=== PATIENT | female | born 1965 | race Caucasian/White ===

== ENCOUNTER → 2017-08-22 | Day surgery (SDC) | payer OTHER ==
[2017-07-31 13:43] VITALS: Ht 170.2 cm; Wt 109.1 kg
[~2017-08-22] VITALS: Ht 170.2 cm; Wt 109.1 kg
[~2017-08-22] MED LIST: DEXAMETHASONE SOD INJ 4 MG/ML VIAL ONE; DULO-24 PO; IBUP-1428 PO; LIDOCAINE HCL 1% MPF 5 ML VIAL ONE; LRS10 PO; TRAM-10 PO
--- NOTE | 2017-08-22 07:46 | History & Physical Bridge - [place] ---
H&P Re-Evaluation Bridge Note: I have examined the patient, reviewed the History & Physical and in the interval since the performance of the History & Physical I have noted the following changes of clinical significance: No changes noted
--- NOTE | 2017-08-22 08:20 | [facility] Post Operative Brief Note ---
Immediate Operative Summary Operative Date Aug 22, 2017. Pre-Operative Diagnosis DEGENERATIVE DISC DISEASE Post-Operative Diagnosis SAME Procedure(s) Performed FACET INJECTION L4-L5, L5-S1 Surgeon DR. Amy TELLES Supervisor Conditioning Yard Surgeon(s) 0 Estimated Blood Loss 0 Findings arthritis Specimens none Complication(s) None Disposition Recovery Room / PACU
--- NOTE | 2017-08-22 08:22 | Discharge Instructions-SurgCtr ---
Discharge Instructions Date of Service Aug 22, 2017. Visit Reason for Visit: Degeneration Of Lumbar Intervertebral Disc Discharge Discharge Diagnosis / Problem: degeneration facet joints Discharge Goals Goal(s): Improve function Activity Recommendations Activity Limitations: as noted below Lifting Limitations: gradually increase as tolerated Exercise/Sports Limitations: until after follow-up appointment May Resume Sexual Activity: after follow-up appointment Anesthesia . Post Anesthesia Instructions: If you have had General Anesthesia or IV Sedation: * Do not drive today. * Resume driving when surgeon permits. * Do not make important decisions or sign legal documents today. * Call surgeon for: 1. Temperature elevations greater than 101 degrees F. 2. Uncontrollable pain. 3. Excessive bleeding. 4. Persistent nausea and vomiting. 5. Medication intolerance (nausea, vomiting or rash). * For nausea and vomiting use only clear liquids such as: tea, soda, bouillon until nausea subsides, then gradually increase diet as tolerated. * If you have any concerns or questions, call your surgeon's office. If physician is unavailable and it is an emergency, call 911 or go to the nearest emergency room. . Diet Recommendations Home Diet: no limitations Procedures Procedures Performed: FACET INJECTION L4-L5, L5-S1 Pending Studies Studies pending at discharge: no Medical Emergencies . Who to Call and When: Medical Emergencies: If at any time you feel your situation is an emergency, please call 911 immediately. . Non-Emergent Contact Non-Emergency issues call your: Primary Care Provider Call Non-Emergent contact if: you have any medication questions . . "Provider Documentation" section prepared by Carlos Patel. .
[2017-08-22 08:38] VITALS: BP 112/58; PULSE 58; TEMP 36.7; O2SAT 98
--- NOTE | 2017-08-22 08:50 | OPERATIVE REPORT ---
DATE OF OPERATION: 08/22/2017 PREOPERATIVE DIAGNOSIS: Facet arthrosis L4-5, L5-S1. POSTOPERATIVE DIAGNOSIS: Same. PROCEDURE: Included facet joint injections at L4-5 and L5-S1. SURGEON: Dr. Patel. COMPLICATIONS: Zero. ESTIMATED BLOOD LOSS: Zero. DESCRIPTION OF PROCEDURE: The patient was taken to the minor procedure room and placed prone, prepped and draped sterile. The 22-gauge Tuohy needle advanced to the facet joints bilaterally at L4-5 and L5-S1. A dexamethasone of 1 mL injected without incident. I used biplanar x-rays in imaging. No complications. She was discharged home stable. I attest to the content of the Intraoperative Record and any orders documented therein. Any exception s are noted below.
== END | disposition home or self-care (01) ==
LOC: X.SURG 06:52
PROVIDERS: ATTEND Orthopaedic Surgery Orthopaedic Surgery of the Spine
DX: M47.817 Spondylosis without myelopathy or radiculopathy, lumbosacral region (principal); F17.210 Nicotine dependence, cigarettes, uncomplicated

== ENCOUNTER → 2017-09-18 | Outpatient (CLI) | payer OTHER ==
[~2017-09-18] MED LIST changes: -DEXAMETHASONE SOD INJ 4 MG/ML VIAL ONE; -LIDOCAINE HCL 1% MPF 5 ML VIAL ONE
== END | disposition home or self-care (01) ==
LOC: C.RDSM 13:44
PROVIDERS: ATTEND Orthopaedic Surgery Sports Medicine
DX: M25.531 Pain in right wrist (principal); M25.532 Pain in left wrist

== ENCOUNTER → 2017-11-15 | Day surgery (SDC) | payer OTHER ==
[2017-10-15 14:46] VITALS: Ht 170.2 cm; Wt 109.1 kg
[2017-11-11 14:47] LABS: HEMATOCRIT 37.9 % (37-47); HEMOGLOBIN 12.4 g/dL (12.0-16.0); MEAN CELL VOLUME 92.2 fL (80-100); MEAN CORPUSCULAR HEMOGLOBIN 30.2 pg (25-34); MEAN CORPUSCULAR HGB CONC 32.7 g/dl (32-36); MEAN PLATELET VOLUME 10.3 fL (7.4-10.4); PLATELET COUNT 207 K/uL (130-400); RED CELL DISTRIBUTION WIDTH CV 13.9 % (11.5-14.5); RED CELL DISTRIBUTION WIDTH SD 46.9 fL (36.4-46.3); WHITE BLOOD COUNT 7.79 K/uL (4.8-10.8)
[2017-11-11 15:23] LABS: CALCIUM 8.7 mg/dl (8.5-10.1); CREATININE 0.78 mg/dl (0.60-1.20); POTASSIUM 3.8 mmol/L (3.5-5.1)
[~2017-11-15] VITALS: Ht 170.2 cm; Wt 109.1 kg
[~2017-11-15] MED LIST changes: +AMOX500C3 PO; +AMOX875T PO; +ATROPINE SULFATE 0.1 MG/ML 5ML SYR IV PRN; +BUPIVACAINE/EPINEPHRINE 0.5% MPF 1:200,000 30 ML VIAL ONE; +CEFAZOLIN 2000MG IV PUSH 10 ML IV SCH; +CIPR0.3S OTB; +DEXAMETHASONE SOD INJ 4 MG/ML VIAL ONE; -DULO-24 PO; +EpHEDrine SULFATE INJ 50 MG/ML AMP IV PRN; +FENTANYL CITRATE INJ 50 MCG/1 ML 2 ML VIAL IV PRN; +FENTANYL CITRATE INJ 50 MCG/1 ML 2 ML VIAL ONE; +KETOROLAC TROMETHAMINE 30 MG/ML VIAL IV. PRN; +LACTATED RINGER'S 1000ML 1,000 ML IV SCH; +LIDOCAINE HCL 1% 20 ML VIAL ONE; +LIDOCAINE HCL 2% 2 ML VIAL (20MG/ML) ONE; +MIDAZOLAM HCL 1 MG/ML 2ML VIAL ONE; +MoRPHine SULFATE 2 MG/ML CARP IV PRN; +MoRPHine SULFATE 4 MG/ML 1 ML CARP\\VIAL IV PRN; +ONDANSETRON INJ 2 MG/ML 2 ML VIAL IV PRN; +ONDANSETRON INJ 2 MG/ML 2 ML VIAL ONE; +OXYC-57 PO; +OXYCODONE/ACETAMINOPHEN 5-325 TAB PO PRN; +PROPOFOL IV EMULSION 10 MG/ML 20 ML VIAL IV ONE; +SERT-234 PO; +TERB250T47 PO; -TRAM-10 PO
--- NOTE | 2017-11-15 13:09 | Discharge Instructions-SurgCtr ---
Discharge Instructions Date of Service Nov 15, 2017. Visit Reason for Visit: Right Carpal Tunnel Syndrome Discharge Discharge Diagnosis / Problem: Status post Right Endoscopic Carpal Tunnel Release Discharge Goals Goal(s): Decrease discomfort, Improve function, Increase independence Medications Stopped Medications Name(s): NO ADVIL SINCE 11-01-17 Activity Recommendations Activity Limitations: per Instructions/Follow-up section Lifting Limitations: no more than 5 pounds (Cup Of Coffee) Exercise/Sports Limitations: rest today May Resume Sexual Activity: when tolerated Shower/Bathe: may shower/bathe in 3 days Driving or Machine Use: Not while on Narcotics Anesthesia . Post Anesthesia Instructions: If you have had General Anesthesia or IV Sedation: * Do not drive today. * Resume driving when surgeon permits. * Do not make important decisions or sign legal documents today. * Call surgeon for: 1. Temperature elevations greater than 101 degrees F. 2. Uncontrollable pain. 3. Excessive bleeding. 4. Persistent nausea and vomiting. 5. Medication intolerance (nausea, vomiting or rash). * For nausea and vomiting use only clear liquids such as: tea, soda, bouillon until nausea subsides, then gradually increase diet as tolerated. * If you have any concerns or questions, call your surgeon's office. If physician is unavailable and it is an emergency, call 911 or go to the nearest emergency room. . Instructions / Follow-Up Instructions / Follow-Up Dr. Schulte in 10-15 days. PT in 11/19/2017 Diet Recommendations Home Diet: resume previous diet Procedures Procedures Performed: Right Endoscopic Carpal Tunnel Release Pending Studies Studies pending at discharge: no Medical Emergencies . Who to Call and When: Medical Emergencies: If at any time you feel your situation is an emergency, please call 911 immediately. . Non-Emergent Contact Non-Emergency issues call your: Surgeon Call Non-Emergent contact if: temperature is above 101.5, your pain is not controlled, wound has increased drainage, wound has increased redness . . "Provider Documentation" section prepared by Charles Schulte. .
--- NOTE | 2017-11-15 13:11 | [facility] Operative Report ---
Operative Report Operative Date Nov 15, 2017. Pre-Operative Diagnosis Right Carpal Tunnel Syndrome Post-Operative Diagnosis Same Procedure(s) Performed Right Endoscopic Carpal Tunnel Release Surgeon Dr. Schulte Specifications Checker Surgeon(s) Sadiq Weldon, Fellow Estimated Blood Loss 2 ml Findings Thickened Right TCL. Fluids (cc crystalloids) 900 Specimens None Drains n/a Anesthesia Local + sedation Complication(s) None Disposition Recovery Room / PACU Implants n/a Indications The patient is a 52 year old female with long standing right carpal tunnel syndrome that has failed conservative treatment. I recommended endoscopic right carpal tunnel release. The patient understands the risks of surgery, which include but are not limited to: bleeding, infection, re-operation, damage to nerves and arteries, continued pain, and stiffness. The patient understands all of these instructions and explanations, all of their questions have been satisfactorily addressed. The patient has elected to proceed with surgery and the informed consent was signed. Description of Procedure The patient was taken to the Operating Room and placed in the supine position on the operating table. After adequate sedation was administered a multidisciplinary time-out was performed identifying my initials on the right upper extremity as the correct and operative limb. Prior to the incisions being made, 2 grams of intravenous Ancef were given. The right upper extremity was prepped and draped in the usual orthopaedic sterile fashion. A Median nerve block was performed in the standard manner, along with superficial injection of the planned incisions with 10 cc of a 50:50 mix of 1% Lidocaine plain and 0.5% Bupivacaine plain. The Pisiform was marked and the planned transverse incision was marked 0.5 cm proximal and 1.5 cm radial, approximately 1 cm in length. An Esmarch was used to exsanguinate the limb and the tourniquet was inflated to 250mmHg. The planned exit portal was made in- line with the Ring Finger crossing Caplans line. The Transverse incision was carried down through the skin and blunt dissect was carried down through the fascia, protecting any superficial vessels. A freer was used to expose the carpal tunnel to the point of the distal exit portal. The slotted cannula was introduced from proximal to distal and the exit portal was incised and the slotted cannula was delivered out the exit portal. The hand was placed on the extension bump. The arthroscope was placed from proximal to distal to view the Transverse Carpal Ligament (TCL). Multiple Q-tips were used for better exposure. The most distal aspect of the TCL was incised with forward cutting blade. Then the Triangular blade was used to incise the TCL in the mid-portion. The retrograde scalpel was used to connect the two incisions in the TCL. At this point the arthroscope was switched to view from the distal to proximal and the proximal portion of the TCL was incised. Care was taken not incise the skin. The forward cutting blade was used to incise the proximal portion. Then the retrograde blade connected the two incisions in the TCL. The triangular blade was used to incise any remaining fibers of the TCL. The entire release was visualized with the arthroscope. The wounds were copiously irrigated. The trocar was replaced prior to removing the cannula. Both portals were closed with 3-0 Nylon. The incisions were dressed with Xeroform gauze, sterile gauze, sterile Webril, and an RENEE bandage. The sponge and needle counts were correct. after placing the bandages, her motor function was tested and her median, radial, ulnar, AIN, PIN as well as thumb apposition were intact. The patient was taken to the recovery room in stable condition. Post-op Instructions: Pain medicine prescription was given pre-operatively to be taken as needed. The patient will elevate and ice. No heavy lifting with his right upper extremity. The patient will follow up with me in 10-15 days. I attest to the content of the Intraoperative Record and any orders documented therein. Any exceptions are noted below.
[2017-11-15 13:15] VITALS: TEMP 36.3
[2017-11-15 13:43] VITALS: BP 115/71; PULSE 57; O2SAT 98
--- NOTE | 2017-11-15 13:53 | Anesthesia Progress Nt - [facility] ---
Anesthesia Post Op Note Date & Time Nov 15, 2017 at 13:53 Vital Signs Pain Intensity: 0 Vital Signs Past 12 Hours Date Time Temp Pulse Resp B/P (MAP) Pulse Ox O2 Delivery O2 Flow Rate FiO2 11/15/17 13:43 57 16 115/71 (86) 98 Room Air 11/15/17 13:15 36.3 54 16 99/50 (66) 97 Room Air 11/15/17 10:03 36.5 60 16 128/62 (84) 97 Room Air
== END | disposition home or self-care (01) ==
LOC: X.SURG 09:35
PROVIDERS: ATTEND Orthopaedic Surgery Sports Medicine
DX: G56.01 Carpal tunnel syndrome, right upper limb (principal); F32.9 Major depressive disorder, single episode, unspecified; F17.200 Nicotine dependence, unspecified, uncomplicated; E66.9 Obesity, unspecified; Z68.38 Body mass index [BMI] 38.0-38.9, adult; Z90.89 Acquired absence of other organs; Z90.49 Acquired absence of other specified parts of digestive tract; Z98.890 Other specified postprocedural states; Z82.49 Family history of ischemic heart disease and other diseases of the circulatory system

== ENCOUNTER 2018-02-21 22:57 | Emergency (ER) | payer OTHER ==
[~2018-02-21] VITALS: Ht 172.7 cm; Wt 111.6 kg
[~2018-02-21 22:57] MED LIST changes: -AMOX500C3 PO; -AMOX875T PO; -ATROPINE SULFATE 0.1 MG/ML 5ML SYR IV PRN; -BUPIVACAINE/EPINEPHRINE 0.5% MPF 1:200,000 30 ML VIAL ONE; -CEFAZOLIN 2000MG IV PUSH 10 ML IV SCH; -CIPR0.3S OTB; -DEXAMETHASONE SOD INJ 4 MG/ML VIAL ONE; -EpHEDrine SULFATE INJ 50 MG/ML AMP IV PRN; -FENTANYL CITRATE INJ 50 MCG/1 ML 2 ML VIAL IV PRN; -FENTANYL CITRATE INJ 50 MCG/1 ML 2 ML VIAL ONE; -KETOROLAC TROMETHAMINE 30 MG/ML VIAL IV. PRN; -LACTATED RINGER'S 1000ML 1,000 ML IV SCH; -LIDOCAINE HCL 1% 20 ML VIAL ONE; -LIDOCAINE HCL 2% 2 ML VIAL (20MG/ML) ONE; -MIDAZOLAM HCL 1 MG/ML 2ML VIAL ONE; -MoRPHine SULFATE 2 MG/ML CARP IV PRN; -MoRPHine SULFATE 4 MG/ML 1 ML CARP\\VIAL IV PRN; -ONDANSETRON INJ 2 MG/ML 2 ML VIAL IV PRN; -ONDANSETRON INJ 2 MG/ML 2 ML VIAL ONE; -OXYC-57 PO; -OXYCODONE/ACETAMINOPHEN 5-325 TAB PO PRN; -PROPOFOL IV EMULSION 10 MG/ML 20 ML VIAL IV ONE; -TERB250T47 PO
[2018-02-21 23:01] VITALS: BP 138/78; PULSE 94; TEMP 37; O2SAT 97; Ht 172.7 cm; Wt 111.6 kg
[2018-02-21] MEDS ORDERED: KETOROLAC TROMETHAMINE 60 MG/2 ML VIAL IM STA (23:19)
[2018-02-21] MEDS ORDERED: AMOXICILLIN 250 MG CAP PO ONE (23:25)
[2018-02-21] MEDS ORDERED: AMOXICILLIN 500 MG CAP PO ONE (23:30)
[2018-02-21] MEDS ORDERED: PERCOCET HOME PACK PO ONE (23:30)
[2018-02-21] MEDS ORDERED: AMOX500C3 PO (23:40)
[2018-02-21] MEDS ORDERED: OXYC-57 PO (23:40)
--- NOTE | 2018-02-21 23:44 | EMERGENCY ROOM VISIT NOTE ---
History Report prepared by Skylar: Alesha Hamm Under the Supervision of: Dr. Kary Byers D.O. First contact with patient: 23:06 Chief Complaint: EAR PAIN Stated Complaint: EAR ACHE, SORE THROAT History of Present Illness The patient is a 52 year old female who presents to the Emergency Room with complaints of constant left ear pain starting this morning. The patient states that the pain is a sharp pain. She reports that it is worse when she is lying on her side. She reports that she felt like she was going to pass out when she went to go to bed tonight. The patient complains of a sore throat. She states that she went to the walk in clinic Saturday for her sore throat. She states that they did a strep test that was negative. The patient denies a history of ear infections, fever, chills, abdominal pain, leg swelling, and swimming recently. Source of History: patient Onset: this morning Position: ear (left) Quality: sharp Timing: constant Modifying Factors (Worsening): other (lying on her side) Associated Symptoms: + sorethroat, No fevers, No chills, No abdominal pain Note: The patient denies leg swelling. Review of Systems See HPI for pertinent positives & negatives. A total of 10 systems reviewed and were otherwise negative. Past Medical & Surgical Medical Problems: (1) Disc degeneration, lumbar (2) Soft tissue abscess Surgical Problems: (1) History of appendectomy (2) History of back surgery (3) History of cholecystectomy Family History Gallbladder disease Hypertension Social History Smoking Status: Current Every Day Smoker Alcohol Use: none Drug Use: none Marital Status: single Housing Status: lives with family Occupation Status: employed Current/Historical Medications Scheduled Amoxicillin (Amoxil), 500 MG PO TID Baclofen (Baclofen), 10 MG PO BID Sertraline (Zoloft), 200 MG PO QAM Scheduled PRN Ibuprofen (Motrin), 800 MG PO TID PRN for Pain Oxycodone/Acetaminophen 5MG/325MG (Percocet 5MG/325MG), 1-2 TABLETS PO Q4H PRN for Pain Allergies Coded Allergies: No Known Allergies (Verified , 11/15/17) Physical Exam Vital Signs Date Time Temp Pulse Resp B/P (MAP) Pulse Ox O2 Delivery O2 Flow Rate FiO2 02/21/18 23:01 37.0 94 20 138/78 97 Room Air Physical Exam HEENT: Head - normocephalic and atraumatic Pupils are equal, round, and reactive to light. Extraocular eye muscles are intact, and sclera are anicteric. Nose - moist nasal mucosa without discharge. Mouth - moist buccal mucosa. Right tonsil is edematous, erythematous, and covered in exudate. Ears- Left TM is ruptured with surrounding erythema and edema. Neck: Supple; no JVD, nuchal rigidity, cervical lymphadenopathy. Heart: Regular rate and rhythm. There is a normal S1 and S2 with no murmurs, clicks, or gallops appreciated. Lungs: Clear to auscultation bilaterally with no wheezes, rales, or rhonchi. Abdomen: Soft, completely nontender, nondistended, with good bowel sounds. There are no palpable pulsatile masses or hepatosplenomegaly. There is no guarding, rigidity, or rebound noted. Extremities: No evidence of cyanosis, clubbing, or edema. There are easily palpable peripheral pulses. Skin: warm and dry with good turgor and no rashes. Medical Decision & Procedures Medications Administered Medications (Trade) Dose Ordered Sig/Nolberto Route Start Time Stop Time Status Last Admin Dose Admin Ketorolac Tromethamine (Toradol Inj) 60 mg NOW STAT IM 02/21/18 23:19 02/21/18 23:23 DC 02/21/18 23:28 60 MG Oxycodone/ Acetaminophen (Percocet 5/ 325MG Home Pack) 1 homepack UD ONCE PO 02/21/18 23:30 02/21/18 23:31 DC 02/21/18 23:29 1 HOMEPACK Amoxicillin (Amoxil Cap) 500 mg STK-MED ONCE PO 02/21/18 23:25 02/21/18 23:26 DC 02/21/18 23:28 500 MG Procedure 2319: Ordered Toradol Inj 60 mg IM. 2325: Ordered Amoxicillin 500 mg PO. 2330: Ordered Oxycodone/ Acetaminophen 1 homepack PO. ED Course 2311: Past medical records reviewed. The patient was evaluated in room C7. A complete history and physical exam was performed. I discussed findings and results with her, including the proper use of the opioids I am prescribing. She verbalized agreement of the treatment plan. The patient was discharged home. 2319: Ordered Toradol Inj 60 mg IM. 2325: Ordered Amoxicillin 500 mg PO. 2329: Ordered Oxycodone/ Acetaminophen 1 homepack PO. Medical Decision The patient is a 52 year old female who presents to the Emergency Room with complaints of constant left ear pain starting this morning. Differential diagnoses include URI, otitis media, otitis externa, ruptured TM, pharyngitis. This is a 52-year-old female patient who presents to the emergency department with some complaints of sore throat throughout the week and now severe left ear pain. On physical exam, the patient has obvious left-sided otitis media with a ruptured tympanic membrane. Patient was given a dose of Toradol here for pain relief and then discharged with a Percocet home pack to use at home. The patient will be started on amoxicillin for the ear infection. I have asked her to avoid getting water in that ear and to follow-up closely with her PCP on Saturday if the pain persists. Otherwise, she can follow-up in 4 weeks to have the ear rechecked. [place] Drug Monitoring Program Search Results: no issues identified Medication Reconcilliation Current Medication List: was personally reviewed by me Blood Pressure Screening Patient's blood pressure: Elevated blood pressure Blood pressure disposition: Elevated BP felt to be situational Impression Primary Impression: Otitis media Additional Impression: Rupture of left tympanic membrane Scribe Attestation The scribe's documentation has been prepared under my direction and personally reviewed by me in its entirety. I confirm that the note above accurately reflects all work, treatment, procedures, and medical decision making performed by me. Departure Information Dispostion Home / Self-Care Prescriptions Oxycodone/Acetaminophen 5MG/325MG (PERCOCET 5MG/325MG) Tab 1-2 TABLETS PO Q4H Y for Pain, #14 TAB Prov: Kary Byers D.O. 02/21/18 Amoxicillin (AMOXIL) 500 Mg Cap 500 MG PO TID, #30 CAP Prov: Kary Byers D.O. 02/21/18 Referrals No Doctor, Assigned (PCP) Forms HOME CARE DOCUMENTATION FORM, IMPORTANT VISIT INFORMATION, WORK / SCHOOL INSTRUCTIONS Patient Instructions [facility] Additional Instructions Rest with your head elevated. Use toradol at home or Percocet - 2 tabs. every 4-6 hours for pain. You should not drive or drink alcohol while taking percocet. Amoxil - 1 tab. every 8 hours Have the ear rechecked in 4 weeks. Follow up sooner if pain persists Problem Qualifiers Primary Impression: Otitis media Chronicity: acute Laterality: left Recurrence: not specified as recurrent Spontaneous tympanic membrane rupture: with spontaneous rupture
== END 2018-02-21 23:48 | disposition home or self-care (01) ==
LOC: C.EDB 22:58 → C.EDC 23:48
DX: H66.92 Otitis media, unspecified, left ear (principal); H72.92 Unspecified perforation of tympanic membrane, left ear; Z90.49 Acquired absence of other specified parts of digestive tract; Z82.49 Family history of ischemic heart disease and other diseases of the circulatory system; F17.210 Nicotine dependence, cigarettes, uncomplicated; Z79.899 Other long term (current) drug therapy

== ENCOUNTER 2018-02-24 17:54 | Emergency (ER) | payer OTHER ==
[~2018-02-24] VITALS: Ht 172.7 cm; Wt 111.5 kg
[~2018-02-24 17:54] MED LIST changes: +AMOX500C3 PO; +OXYC-57 PO
[2018-02-24 18:17] VITALS: BP 116/65; PULSE 85; TEMP 36.9; O2SAT 96; Ht 172.7 cm; Wt 111.5 kg
[2018-02-24] MEDS ORDERED: TERB250T47 PO (18:23)
--- NOTE | 2018-02-24 19:20 | DIAGNOSTIC IMAGING REPORT ---
TEMPORAL BONE CT WITHOUT CONTRAST CLINICAL HISTORY: Bilateral ear pain. Possible mastoiditis. COMPARISON STUDY: No previous studies for comparison. TECHNIQUE: Axial images of the temporal bones were obtained without IV contrast. Coronal and sagittal reformats were viewed. FINDINGS: There is a moderate amount of fluid within the bilateral mastoid air cells. No clear bony destruction within the mastoid air cells is noted. There is apparent thickening of the bilateral tympanic membranes. There is a small amount of fluid/soft tissue tissue within the right Prussak's space. There is slight blunting of the right scutum. There is mild soft tissue thickening and bilateral external auditory canals. There is mild mucosal thickening of the bilateral maxillary and sinuses with moderate mucosal thickening of the ethmoid sinuses. IMPRESSION: 1. Moderate amount of fluid within the bilateral mastoid air cells. 2. Soft tissue/fluid within the right Prussak's space with slight blunting of the right scutum which raises the possibility of a cholesteatoma. 3. Slight thickening of the bilateral tympanic membranes and moderate soft tissue thickening and the bilateral external auditory canals. Electronically signed by: Tien Hyman M.D. 02/24/2018 7:19 PM Dictated Date/Time: 02/24/2018 7:11 PM
[2018-02-24] MEDS ORDERED: OXYC-57 PO (19:44)
[2018-02-24] MEDS ORDERED: AMOX875T PO (19:44)
[2018-02-24] MEDS ORDERED: CIPR0.3S OTB (19:44)
[2018-02-24] MEDS ORDERED: CIPROFLOXACIN HCL 0.3% OP SOLN 2.5 ML BTL OTB ONE (19:45)
[2018-02-24] MEDS ORDERED: AMOXICILLIN/CLAVULANATE TAB 875 MG TAB PO ONE (19:45)
--- NOTE | 2018-02-24 19:46 | EMERGENCY ROOM VISIT NOTE ---
ED Visit Note First contact with patient: 18:20 CHIEF COMPLAINT: Worsening bilateral ear pain 3 days HISTORY OF PRESENT ILLNESS: Patient is a 52-year-old white female who returns to the emergency department for evaluation of bilateral ear pain 3 days. Patient states that her symptoms started last Saturday, 02/19, with a sore throat. She was seen at the walk-in clinic at [facility], a rapid strep was performed and was negative. She reports that 2 days later, on Saturday, 02/21 she developed left ear pain. She was seen here in the emergency department diagnosed with a left otitis media and a ruptured tympanic membrane. She was placed on amoxicillin and Percocet. She states that the Percocet did help with her pain. She took it at bedtime and it helped with her discomfort so she that she could sleep. She states that the ear pain is not getting any better and is actually getting worse and is now involving the right ear. She continues to note drainage and discharge from the left ear. She also notes a headache, congestion and a sore throat. She has been using ibuprofen which has not been helping. She had follow up today, and was seen by the resident at [facility] and by Dr. Helton, who referred her to the emergency department. They were apparently trying to get a CT scan authorized for evaluation of mastoiditis but were unable to, and thus sent her here for the CT scan. The patient rates her discomfort a 10/10. She has not had any fevers. REVIEW OF SYSTEMS: Review of systems as per HPI. All other systems reviewed were negative. 10 systems reviewed. PMH: Electronic medical records are reviewed and summarized as above/below. See Problem List. SOCIAL HISTORY: Patient lives at home. Smoker. PHYSICAL EXAM: Vital Signs: Reviewed Nurse's notes. MENTAL STATUS: Patient is an uncomfortable appearing 52-year-old white female who is awake and alert and in moderate distress due to her stated complaint. She is afebrile and vital signs are stable.. EYES: PERRL, EOMI, no discharge or injection. EARS: Examination of the patient's right ear note the tympanic membrane to be intact, no obvious effusion or bulging, TM is slightly erythematous. Canal is erythematous, but not significantly narrowed, no significant discharge is noted. She does have some tenderness to palpation behind the left ear, not so much over the mastoid, but more in the lymphatics. There is no tragal or auricular motion tenderness. Examination of the left ear notes again, no erythema over the mastoid, no tragal or auricular motion tenderness. The canal is erythematous, with mucopurulent discharge noted. Tympanic membrane is difficult to assess due to the discharge in the canal, but no obvious perforation is appreciated. NOSE: Nares patent, turbinates edematous and boggy with clear rhinorrhea. MOUTH: Mucous membranes moist, no lesions, tongue and gums appear normal. THROAT: Tonsils are slightly enlarged and erythematous bilaterally, white exudate noted on the right tonsil. Uvula is midline. No trismus. Airway is patent. NECK: Supple, nontender, no lymphadenopathy is palpable, patient has discomfort on palpation of the lymphatics in the pre-and postauricular areas, in addition to the cervical chain distribution.. HEART: Regular rate and rhythm without murmurs, ectopy, gallops, or rubs. LUNGS: Clear to auscultation and breath sounds equal, no wheezes, rales, or rhonchi. SKIN: Normal. NEUROLOGICAL: Sensory and motor functions grossly intact. Normal gait. ED course: The patient was seen and assessed as above. CT scan was performed, which noted some fluid in the bilateral mastoid air cells, without overt evidence for mastoiditis. Thickening of the tympanic membranes and swelling of the right lateral external auditory canals were noted, in addition to a possible cholesteatoma on the right. Supportive care measures were discussed with the patient, she has been on almost 3 full days of amoxicillin with worsening symptoms. There may be a superimposed otitis externa, she does not have any all evidence for mastoiditis. She will be switched to Augmentin, and will be placed on ciprofloxacin drops to treat her ears bilaterally. She was also given a prescription for Percocet to use as needed for pain as this was helpful previously. She was advised to recheck with her primary care provider in an additional 2-3 days, particularly if her symptoms are not improving. Differential diagnoses entertained included otitis media otitis externa, TM perforation, mastoiditis, among others. Medication reconciliation: I attest that I have personally reviewed the patient' s current medication list. Blood pressure screening : Patient was found to have normal blood pressure on screening and does not require follow-up. Patient was reviewed in the [facility] Prescription Drug Monitoring Program, and there were no red flags noted. TEMPORAL BONE CT WITHOUT CONTRAST CLINICAL HISTORY: Bilateral ear pain. Possible mastoiditis. COMPARISON STUDY: No previous studies for comparison. TECHNIQUE: Axial images of the temporal bones were obtained without IV contrast. Coronal and sagittal reformats were viewed. FINDINGS: There is a moderate amount of fluid within the bilateral mastoid air cells. No clear bony destruction within the mastoid air cells is noted. There is apparent thickening of the bilateral tympanic membranes. There is a small amount of fluid/soft tissue tissue within the right Prussak's space. There is slight blunting of the right scutum. There is mild soft tissue thickening and bilateral external auditory canals. There is mild mucosal thickening of the bilateral maxillary and sinuses with moderate mucosal thickening of the ethmoid sinuses. IMPRESSION: 1. Moderate amount of fluid within the bilateral mastoid air cells. 2. Soft tissue/fluid within the right Prussak's space with slight blunting of the right scutum which raises the possibility of a cholesteatoma. 3. Slight thickening of the bilateral tympanic membranes and moderate soft tissue thickening and the bilateral external auditory canals. Problem List Medical Problems: (1) Back pain Status: Resolved (2) Disc degeneration, lumbar Status: Chronic (3) Epigastric pain Status: Resolved (4) Helicobacter pylori ab+ Status: Resolved (5) Lumbar back pain Status: Resolved (6) Otitis media Status: Resolved (7) Otitis media Status: Resolved (8) Rupture of left tympanic membrane Status: Resolved (9) Rupture of left tympanic membrane Status: Resolved (10) Ruptured tympanic membrane Status: Resolved (11) Soft tissue abscess Status: Resolved (12) UTI (urinary tract infection) Status: Resolved Surgical Problems: (1) History of appendectomy Status: Resolved (2) History of back surgery Status: Resolved (3) History of cholecystectomy Status: Resolved Current/Historical Medications Scheduled Amoxicillin (Amoxil), 500 MG PO TID Amoxicillin & Pot Clavulanate (Augmentin 875-125 mg), 1 TAB PO BID Ciprofloxacin Hcl (Ophth) (Ciloxan Oph), 4 DROPS OTB QID Sertraline (Zoloft), 200 MG PO QAM Terbinafine Hcl (Terbinafine Hcl), 1 TAB PO DAILY Scheduled PRN Ibuprofen (Motrin), 800 MG PO TID PRN for Pain Oxycodone/Acetaminophen 5MG/325MG (Percocet 5MG/325MG), 1-2 TABLETS PO Q4H PRN for Pain Oxycodone/Acetaminophen 5MG/325MG (Percocet 5MG/325MG), 1-2 TABS PO Q4 PRN for Pain Allergies Coded Allergies: No Known Allergies (Verified , 02/24/18) Vital Signs Date Time Temp Pulse Resp B/P (MAP) Pulse Ox O2 Delivery O2 Flow Rate FiO2 02/24/18 18:17 36.9 85 16 116/65 96 Room Air Medications Administered Medications (Trade) Dose Ordered Sig/Nolberto Route Start Time Stop Time Status Last Admin Dose Admin Amoxicillin/ Clavulanate Potassium (Augmentin Tab) 875 mg ONE ONCE PO 02/24/18 19:45 02/24/18 19:46 DC 02/24/18 20:05 875 MG Ciprofloxacin HCl (Ciprofloxacin 0.3% Op Soln) 4 drops NOW ONCE OTB 02/24/18 19:45 02/24/18 19:46 DC 02/24/18 20:05 4 DROPS Departure Information Impression Primary Impression: Otitis media Prescriptions Oxycodone/Acetaminophen 5MG/325MG (PERCOCET 5MG/325MG) Tab 1-2 TABS PO Q4 Y for Pain, #20 TAB For Initial Treatment Prov: Christy Hartley PA 02/24/18 Ciprofloxacin Hcl (Ophth) (CILOXAN OPH) 0.3 % Shantal 4 DROPS OTB QID, #1 BTL Prov: Christy Hartley PA 02/24/18 Amoxicillin & Pot Clavulanate (Augmentin 875-125 mg) 1 Tab Tab 1 TAB PO BID, #20 TAB Prov: Christy Hartley PA 02/24/18 Referrals Tutu Gates M.D. (PCP) Patient Instructions My [facility] Additional Instructions Stop amoxicillin. Augmentin 875 mg: Take one pill 2 times daily for 10 days for your ear infection. All antibiotics can cause diarrhea. If this occurs and you feel worse or it does not resolve in 1-2 days follow up with your doctor or return to the Emergency Department as this could be signs of serious underlying problems. Any medication can cause an allergic reaction, stop the pills immediately and return to the ER for rash, hives, breathing difficulties, or swelling. Ibuprofen(Motrin, Advil) may be used for fever or pain. Use 600mg every six hours as needed. Take with food. Avoid using more than 2400mg in a 24 hour period. Do not use 2400mg per day for more than three consecutive days without physician direction. Prolonged inappropriate use can lead to stomach upset or ulcers. Percocet 5/325 mg: Take 1-2 pills every four hours for breakthrough pain. Avoid alcohol, operating machinery or dangerous equipment, working on ladders or roofs, DRIVING, or situations where being under the influence may be dangerous. It is recommended to use an [id number] stool softener such as Colace, 100mg twice daily while taking this medication to avoid constipation. Cipro drops: 4 drops in the left ear 4 times daily for the next 7 days. Follow up with your primary care provider in 2-3 days for recheck.
== END 2018-02-24 20:09 | disposition home or self-care (01) ==
LOC: C.EDB 17:56 → C.EDD 20:09
DX: H66.93 Otitis media, unspecified, bilateral (principal); F17.200 Nicotine dependence, unspecified, uncomplicated